=== PATIENT | male | born 1960 | race Caucasian/White ===

== ENCOUNTER 2019-09-08 09:30 | Inpatient (IN) | payer OTHER ==
[~2019-09-08] VITALS: Ht 175.3 cm; Wt 101.2 kg
--- NOTE | 2019-09-09 07:38 | HP ---
[facility] [address] [place], [place] [address] Signed ADMISSION DATE: 09/08/2019 PROBLEM: Right lateral abdominal wall, probable infected hematoma. HISTORY OF PRESENT ILLNESS: This 58-year-old white man lives approximately 50 miles from [place], [place]. That is his closest reasonably discernible address. He presented to the emergency room to be evaluated for a right abdominal wall soft tissue mass, which was considered a hematoma with abrasion over it, increasing pain and not going away over time. It has also been locally warm and tender. Three weeks ago, he fell into a ice grinder that he had at his home, which caused blunt trauma to the area. The ice grinder was not working at the moment. He developed ecchymosis in the area and descending ecchymosis of the soft tissue of the right lateral thigh. His evaluation by Dr. Oliver showed a soft boggy soft tissue mass of the right lateral abdominal wall, not far from the iliac crest. An ultrasound and also a CT scan were performed, which confirmed high probability of a relatively large hematoma. There was no sign of air bubbles within the abnormality particularly. it showed no sign of intraabdominal injury. It was noted that there was some discontinuity of the skin overlying the area in question. He did not have bleeding or anything at the time of the injury, only an abrasion apparently. PAST MEDICAL HISTORY: Dominantly significant for chronic alcoholism. He has several beers daily. He now lives alone, his required placement in a residential due to progressive multiple sclerosis. His evaluation in addition of the CT scan and ultrasound did include lab studies, which showed a normal white count of 4.6, hematocrit of 41.1, and platelets of 272,000. His Chem profile was rather unremarkable. Sodium was slightly low at 131, creatinine is 0.67. AST is 61, ALT 52, albumin 4.6. Coag studies showed INR, which was normal at 1.0. The patient does not smoke. ALLERGIES: He has no known drug allergies. His underlying medical problems include hypertension. Electronically Signed By: RINKU CESAR MD 09/09/19 0738 PATIENT NAME: JULIÁN HAIRSTON HISTORY AND PHYSICAL DATE OF : 56 REPORT #: [id number] PHYSICIAN: RINKU CESAR MD PCP: NO PRIMARY CARE PHYSICIAN REPORT IS CONFIDENTIAL AND NOT TO BE RELEASED WITHOUT AUTHORIZATION [facility] [address] [place] [address] Signed The patient has had bilateral lower extremity swelling to some degree and on that basis, he underwent a duplex ultrasound on the right side, which showed no evidence of deep venous thrombosis. A chest x-ray showed no sign of trauma or other abnormality. REVIEW OF SYSTEMS: He denies any fever or chills. He last drank a few beers earlier in the morning. He did not have breakfast. He drank those at approximately 5:00 a.m. He denies any shortness of breath or cough or chest pain or hemoptysis. PHYSICAL EXAMINATION: GENERAL: This is a man with a kim complexion. He is alert and oriented. He has mild tremulousness of uncertain etiology. He does not have typical symptoms of alcohol withdrawal at this time. VITAL SIGNS: Showed a pulse of 82. Blood pressure 168/98, subsequently 168/90. A pulse oximetry on room air of 97%, respiratory rate of 17, and a pulse of 84. NECK: Shows no thyromegaly or cervical adenopathy. Trachea is midline. CHEST: Clear. I detect no wheeze. HEART: Regular without murmur. ABDOMEN: Somewhat obese, but soft. There is ecchymosis on the right lateral abdominal wall inferiorly and a somewhat boggy, erythematous, tender mass consistent with site of prior trauma. There is ecchymosis in his right lateral and anterolateral thigh in the right side. He has mild peripheral edema. Left does not seem worse than right. I detect no clinical evidence of ascites. A CT scan was reviewed confirming no evidence of ascites. A fair amount of intraabdominal fat, however. The soft tissue mass in question is uniform in appearance, abuts the skin quite directly, measures approximately 9 cm in length. There is some surrounding inflammation and soft tissue fat and edema. Abdominal examination also shows a relatively sizable, reasonably reducible hernia at the umbilicus. It appears to contain fat. Other features of abdominal inspection showed two kidneys, both of normal configuration and size, however, the right appears to have some hydronephrosis. I will have to review that with the radiologist as my impression may be in air. This may represent an inferior polar cyst of the kidney. Interpretation subsequently reviewed showed no hydronephrosis, rather bilateral extrarenal pelvis of the kidneys. Lab studies were as previously described including normal white count. ASSESSMENT: His injury was 3 weeks ago and may represent a hematoma. Given his tenderness and erythema, I think there is a reasonably high chance this is actually an infected hematoma at this point. He does not have a white count or fever so far as can be known, but he is tendering by this point if the hematoma was resolving, I would expect it to be Electronically Signed By: RINKU CESAR MD 09/09/19 0738 PATIENT NAME: JULIÁN HAIRSTON DAVID HISTORY AND PHYSICAL DATE OF : 56 REPORT #: [id number] PHYSICIAN: RINKU CESAR MD PCP: NO PRIMARY CARE PHYSICIAN REPORT IS CONFIDENTIAL AND NOT TO BE RELEASED WITHOUT AUTHORIZATION [facility] [address] [place], [place] [address] Signed a very firm and dense mass rather than a ballotable tender boggy abnormality. On that basis, we would recommend an operation to include incision and drainage and irrigation of the area as well as culture. He lives a fair distance away. He may require overnight hospitalization to allow for self transport tomorrow if able. We are mindful of his underlying alcoholism and prophylaxis against withdrawal will be needed as well. The risks of bleeding, infection, and other unforeseen complications related to this problem were reviewed with him in detail. He understands and wished to proceed. As regard to his umbilical hernia that can and should be fixed at a later date. At present, we are in the midst of a coronavirus pandemic and elective operations are off limits at this time and it would not be gonzalez to fix it concurrently with this problem, particularly if it is infected. Might most likely the umbilical hernia, which is not fully reducible, but does contain only fat; we would require mesh, which would be a "no go" in the environment of possible infection. He understands this as well. MD ASHLEY Whiting/CARLOS /[id number] cc: Naeem Oliver MD [facility] Copies: NAEEM OLIVER MD ~ Electronically Signed By: RINKU CESAR MD 09/09/19 0738 PATIENT NAME: JULIÁN HAIRSTON HISTORY AND PHYSICAL DATE OF : 56 REPORT #: [id number] PHYSICIAN: RINKU CESAR MD PCP: NO PRIMARY CARE PHYSICIAN REPORT IS CONFIDENTIAL AND NOT TO BE RELEASED WITHOUT AUTHORIZATION
--- NOTE | 2019-09-09 07:38 | OR ---
[facility] [address] [place], [place] [address] Signed DATE OF OPERATION: 09/08/2019 SURGEON: Rinku Cesar MD PREOPERATIVE DIAGNOSES: 1. Right abdominal wall infected large hematoma, secondary to blunt trauma. 2. Chronic alcoholism. POSTOPERATIVE DIAGNOSES: 1. Right abdominal wall infected large hematoma, secondary to blunt trauma. 2. Chronic alcoholism. PROCEDURES: 1. Exam under anesthesia, incision and drainage of large right abdominal wall hematoma. 2. Debridement of soft tissue including fat and subcutaneous tissue. 3. Placement of Live drain (5/8 inches). ANESTHESIA: General endotracheal; Rinku Horvath CRNA. INDICATION: This 58-year-old white man is a chronic alcoholic and lives at least 40 miles from [place], [place]. He presented independently today at [facility], was evaluated by Dr. Forman with complaints of a right abdominal wall soft tissue mass, which was boggy, erythematous, and painful. As it turns out, he fell forward on a grinding implement 3 weeks ago. He has some ecchymosis of the abdominal wall, which extends down to the right thigh. Clinical examination shows a tender erythematous boggy, not hard area where probable infected hematoma is. He drove here himself. His is in a senior living due to multiple sclerosis and he shows no evidence of systemic toxicity and no elevated white count or fever, but it is highly probable that this hematoma of the abdominal wall is infected, though that is not certain. On the basis of these findings, I have recommended admission to the hospital with incision and drainage of the probably infected hematoma. The risks of bleeding, infection, failure to cure the problem, and other unforeseen complications were reviewed in detail. He understands and wished to proceed. Of note, imaging in the emergency room included not only an ultrasound, but a CT scan of the abdomen which shows no sign of intraabdominal injury and a uniform [id number] collection of fluid, most likely hematoma of the right lower abdominal wall. This may represent abscess or hematoma alone. Electronically Signed By: RINKU CESAR MD 09/09/19 0738 PATIENT NAME: JULIÁN HAIRSTON OPERATIVE REPORT DATE OF : 56 REPORT #: [id number] PHYSICIAN: RINKU CESAR MD PCP: NO PRIMARY CARE PHYSICIAN REPORT IS CONFIDENTIAL AND NOT TO BE RELEASED WITHOUT AUTHORIZATION [facility] [address] [place], [place] [address] Signed FINDINGS: A large gelatinous hematoma was extruded from the cavity. Measured approximately 8 cm in size and volume of the evacuated clot was between 300 and 500 mL. There was necrotic fat of the abdominal wall, which was debrided. Ultimately, a counter incision was also made and a 5/8-inch [place] drain was passed and tied in a loop to allow for persistent drainage. The wound was packed with Kerlix gauze. DESCRIPTION OF PROCEDURE: The patient was brought to the operating room, given a general endotracheal anesthetic. Preoperative antibiotic Ancef had been given. Sequential compression device stockings used and heparin subcutaneously administered. Additionally, he was given Ativan preoperatively by the tree and shrub worker as well as on the tate for tremulousness, likely related to alcoholism. The abdomen was prepared with a chlorhexidine solution and draped sterilely. Photographs were taken. Using an #11 blade, a longitudinal incision was made in a superior to inferior direction in the lateral aspect of the hematoma. Egress of purulent material was not forthcoming, but gelatinous dark black old blood clot was extruded. Incision was extended a bit allowing for extrusion of the clotted tissue. Dissection device was used ultimately delivering approximately 300 to 500 mL of black clot. Gram stain and cultures were obtained. Once the irrigation was undertaken, examination of the abdominal wall itself internally showed necrotic fat. This was debrided. There was no sign of necrotizing fasciitis or other necrotizing component. The overlying skin was viable. A counter incision was made medially similar to the initial incision and a 5/8-inch Live drain was passed through it and tied in a loop. Irrigation was undertaken more fully with sterile saline solution. Once hemostasis was assured with electrocautery, the wound was then packed with a Kerlix gauze and trimmed to appropriate length and ABD pad was then applied. The patient was ultimately extubated and transferred to recovery room in good condition having suffered no complications. Sponge, needle, and instrument counts were reported as correct x3. MD ASHLEY Whiting/MODL /[id number] cc: Naeem Forman MD Electronically Signed By: RINKU CESAR MD 09/09/19 0738 PATIENT NAME: JULIÁN HAIRSTON OPERATIVE REPORT DATE OF : 56 REPORT #: [id number] PHYSICIAN: RINKU CESAR MD PCP: NO PRIMARY CARE PHYSICIAN REPORT IS CONFIDENTIAL AND NOT TO BE RELEASED WITHOUT AUTHORIZATION [facility] [address] [place], [place] [address] Signed Copies: NAEEM FORMAN MD ~ Electronically Signed By: RINKU CESAR MD 09/09/19 0738 PATIENT NAME: JULIÁN HAIRSTON OPERATIVE REPORT DATE OF : 56 REPORT #: [id number] PHYSICIAN: RINKU CESAR MD PCP: NO PRIMARY CARE PHYSICIAN REPORT IS CONFIDENTIAL AND NOT TO BE RELEASED WITHOUT AUTHORIZATION
--- NOTE | 2019-09-09 08:15 | EKG ---
[facility] [address] [facility] [place], [place] [address] Signed Normal sinus rhythm Normal ECG No previous ECGs available Confirmed by JARED RODAS MD ([id number]) on 09/09/2019 8:15:09 AM Electronically Signed By: JARED RODAS MD 09/09/19814 PATIENT NAME: HAIRSTONJULIÁN DAVID Electrocardiogram DATE OF : 56 PHYSICIAN: JARED RODAS MD REPORT #: [id number] REPORT IS CONFIDENTIAL AND NOT TO BE RELEASED WITHOUT AUTHORIZATION
[2019-09-10] MEDS ORDERED: TYLENOL EXTRA500 MG PO (10:05)
[2019-09-10] MEDS ORDERED: IBUPROFEN600 MG PO (10:05)
[2019-09-10] MEDS ORDERED: NEPHRO-VITE RX1 EACH PO (10:07)
[2019-09-10] MEDS ORDERED: PEPCID20 MG PO (10:08)
--- NOTE | 2019-09-11 10:22 | DS ---
[facility] [address] [place], [place] [address] Signed ADMISSION DATE: 09/09/2019 DISCHARGE DATE: 09/10/2019 REASON FOR ADMISSION: This 58-year-old white man is a chronic alcoholic, drinking up to 30 beers daily. He drove from his home in [place], [place] to be evaluated in the emergency room for an area of his right abdominal wall which was swollen, hot and distended related to a ground level fall he had in his home related to a head bone grinder. He additionally was noted to have ecchymosis of his right hip area and some resolving bruises of his abdominal wall. The lesion was considered to be 3-weeks old. The area in question was the size of an orange, boggy and fluctuant, erythematous and tender. His white count was normal and he had no fever, but is likely to have infected hematoma and therefore was admitted for further evaluation and care. PERTINENT PHYSICAL EXAMINATION: GENERAL: Showed a tremulous white man, who is alert and oriented. Mucous membranes reasonably moist. Trachea midline. CHEST: Clear. HEART: Regular. ABDOMEN: Obese with an incompletely reducible umbilical hernia. A large soft tissue mass of his right abdominal wall superior and medial to his anterior superior iliac spine on the right side was noted. It has had a few pock benton suggestive of previous abrasion or scrape. It was locally tender, mild erythematous and brawny in appearance. EXTREMITIES: His right thigh had resolving ecchymosis including the trochanteric area, but without hematoma or local tenderness particularly. An ultrasound and also CT scan had been performed under the direction of Dr. Forman confirming a uniformly dense collection in the subepithelial area on the right abdominal wall consistent with hematoma. There were no air bubbles within it. HOSPITAL COURSE: The patient was given intravenous fluids. He was taken to operation where under a general anesthetic he underwent incision and drainage of the area. A dark black gelatinous clot was extruded through the incision and a counter incision made and a 1 inch yellow Live drain placed. The clot was removed completely and debridement of what appeared to be some necrotic fascial tissue including subcutaneous fat was undertaken. Copious irrigation was undertaken. There was no jerzy purulence. Cultures were obtained. Subsequently noted cultures did not grow any pathogenic organisms. His preoperative and perioperative antibiotics included Ancef. Electronically Signed By: RINKU CESAR MD 09/11/19 1022 PATIENT NAME: JULIÁN HAIRSTON DISCHARGE SUMMARY DATE OF : 56 REPORT #: [id number] PHYSICIAN: RINKU CESAR MD PCP: NO PRIMARY CARE PHYSICIAN REPORT IS CONFIDENTIAL AND NOT TO BE RELEASED WITHOUT AUTHORIZATION [facility] [address] [place] [address] Signed The wound was packed with Kerlix gauze. Alcohol withdrawal prophylaxis was maintained with Ativan. Consultation was undertaken with the hospitalist, Dr. Bird, who agreed with this plan. Approximately, at 3 a.m. within 12 hours of operation, he had some oozing of blood from the incision site as well as findings consistent with withdrawal syndrome. Ativan intravenously and orally administered and was given to control his symptoms. I withdrew the wound packing approximately 3:30 in the morning and repacked with sterile gauze, leaving the vessel loop in place. There was found to be no active bleeding upon withdrawal of the guaze. By the following morning he was more oriented. He had little (if any) intention to consider a detoxification regimen. He was given beer as per usual to minimize his withdrawal symptoms in addition to a change of medication to Librium. 24 hours of further observation showed him to be recovering well. On the day of discharge, the wound packing was removed showing no sign of bleeding. The loop drain was also removed without problem. The wound was covered with a simple gauze dressing. DISPOSITION: Slightly complex under the circumstances. The patient said he felt he could drive home, but given his alcohol intake and so forth, it was completely not acceptable. On that basis, family member (daughter) was to come from the [place], [place] area to pick him up and another rolloff truck driver to take his truck back to his home. program planner, Melinda Muñoz RN interceded to assess for possible detoxification. The detox center is not currently accepting any patients for any inpatient treatment due to the viral barrios pandemic. Contact was made with the patient through a "peer to peer" interaction. Although, the patient has no significant intention of proceeding to detox program at this time, he might be interested in the future. Resources are apparently limited in the [facility]. In the meantime of the pandemic control resolution, the patient will be at home, likely continue with his alcohol use, so he is advised to strictly not do any driving while in by being alcohol. He will be discharged with Tylenol and Motrin for pain control, though his pain is much diminished now. Antibiotic therapy will not be needed at this point. Librium which was used with some benefit will not be administered as the patient does have severe underlying sleep apnea which in combination with continued alcohol use would pose a special hazard to him. Electronically Signed By: RINKU CESAR MD 09/11/19 1022 PATIENT NAME: YOVANNYJULIÁNNiki HERNANDEZ DISCHARGE SUMMARY DATE OF : 56 REPORT #: [id number] PHYSICIAN: RINKU CESAR MD PCP: NO PRIMARY CARE PHYSICIAN REPORT IS CONFIDENTIAL AND NOT TO BE RELEASED WITHOUT AUTHORIZATION [facility] [address] [place], [place] [address] Signed FOLLOWUP PLANS: He is to return and see me in 4-6 weeks if able. If not, a phone followup may be acceptable. Wound care instructions include showering on a daily basis, allow water to enter to the wound area with application of plain gauze over the wound. Coordination of the supply planner with family members to initiate a rehabilitation program with him are ongoing. DISCHARGE DIAGNOSES: 1. Blunt force trauma causing abdominal wall symptomatic large hematoma three weeks prior to admission, status post incision and drainage and evacuation of hematoma and wound care. 2. Chronic severe alcoholism with known recidivism (30 beers a day). 3. Sleep apnea syndrome. 4. Withdrawal related hypertension (resolved) Rinku Cesar MD /MODL /[id number] cc: MD Naeem Tejada MD Copies: JARED BIRD MD, WILLIAM S MD ~ Electronically Signed By: RINKU CESAR MD 09/11/19 1022 PATIENT NAME: JULIÁN HAIRSTON DISCHARGE SUMMARY DATE OF : 56 REPORT #: [id number] PHYSICIAN: RINKU CESAR MD PCP: NO PRIMARY CARE PHYSICIAN REPORT IS CONFIDENTIAL AND NOT TO BE RELEASED WITHOUT AUTHORIZATION
--- NOTE | 2019-09-11 10:41 | PATH ---
[facility] [address] [facility] [place], [place] [address] Signed SPECIMEN(S): A NECROTIC ABDOMINAL WALL FAT SPECIMEN SOURCE: A. NECROTIC ABDOMINAL WALL FAT CLINICAL HISTORY: Abdominal hematoma. FINAL PATHOLOGIC DIAGNOSIS: "Necrotic abdominal wall fat," excision: - Fibroadipose tissue with fibrosis, fat necrosis and hemorrhage. COMMENT: Correlation with clinical findings is recommended. NAL:caw:[id number] MICROSCOPIC EXAMINATION: Histologic sections of all submitted blocks are examined by light microscopy. Sections demonstrate fibrodipose tissue with fibrosis, hemorrhage and fat necrosis. A focal intravascular organizing thrombus is present. These findings, together with the gross examination, support the pathologic diagnosis. GROSS DESCRIPTION: The specimen, labeled "AC," and designated on the requisition "necrotic abdominal wall fat," is received in formalin and consists of several pieces of irregular shaped, yellow-pink, lobulated, focally congested fibroadipose tissue that aggregate measure 3.5 x 2.2 x 0.8 cm. Sectioning through the specimen reveals yellow-pink, focally congested fibroadipose tissue. [employer] sections are submitted in cassette (A1). JS (under the direct supervision of a pathologist) The Gross Description was prepared using a voice recognition system. The report was reviewed for accuracy; however, sound-alike word errors, addition and/or deletions may occur. If there is any question about this report, please contact Client Services. PERFORMING LABORATORY: The technical component was performed by [employer], [address] [place] [id number] (Personal Development Educator: Bharti Villeda MD; CLIA# [id number]). Professional interpretation was performed by PATIENT NAME: JULIÁN HAIRSTON PATHOLOGY DATE OF : 56 REPORT #: [id number] PHYSICIAN: [facility] PCP: NO PRIMARY CARE PHYSICIAN REPORT IS CONFIDENTIAL AND NOT TO BE RELEASED WITHOUT AUTHORIZATION [facility] [address] [place], [place] [address] Signed [facility], [facility], [address] [address] (CLIA# [id number]). Diagnostician: Padmaja Silva MD Pathologist Electronically Signed 09/11/2019 Copies: ~ PATIENT NAME: JULIÁN HAIRSTON PATHOLOGY DATE OF : 56 REPORT #: [id number] PHYSICIAN: [facility] PCP: NO PRIMARY CARE PHYSICIAN REPORT IS CONFIDENTIAL AND NOT TO BE RELEASED WITHOUT AUTHORIZATION
== END 2019-09-10 14:10 | disposition home or self-care (01) | DRG 605 ==
LOC: ED 09:30 → MS 09:32
PROVIDERS: ADMIT Surgery
PROC: 0JC80ZZ Extirpation of Matter from Abdomen Subcutaneous Tissue and Fascia, Open Approach (ICD-10-PCS; principal; 2019-09-08 16:00)
DX: S30.1XXA Contusion of abdominal wall, initial encounter (principal); F10.239 Alcohol dependence with withdrawal, unspecified; I15.8 Other secondary hypertension; K42.9 Umbilical hernia without obstruction or gangrene; F17.220 Nicotine dependence, chewing tobacco, uncomplicated; G47.30 Sleep apnea, unspecified; W01.198A Fall on same level from slipping, tripping and stumbling with subsequent striking against other object, initial encounter; Y92.009 Unspecified place in unspecified non-institutional (private) residence as the place of occurrence of the external cause
CPT/HCPCS: 00400; 51798; 71045; 74177; 80053; 85025; 85610; 85730; 93005; 93010; 93971; 94660; 94762; 96372; 96375; 96376; 99285-25; G0378; J0330; J0690; J1100; J1644; J1885; J2060; J2250; J2270; J2405; J2704; J2765; J3010; J3475; J7030; J7121; Q9967